=== PATIENT | female | born 1975 | race Caucasian/White ===

== ENCOUNTER → 2018-03-23 | Outpatient (CLI) | payer OTHER ==
[2018-03-23 15:39] LABS: BILIRUBIN,URINE NEGATIVE (NEG); CLARITY,URINE CLEAR; COLOR,URINE YELLOW; GLUCOSE,URINE NEGATIVE (NEG); NITRITE,URINE NEGATIVE (NEG); PH,URINE 6.5; PROTEIN,URINE NEGATIVE (NEG-TRACE)
[2018-03-23 15:47] LABS: ADD MAN DIFF? NO; BASO # 0.1 x10^3/uL (0.0-0.2); BASO % 1 % (0-3); EOS # 0.1 x10^3/uL (0.0-0.7); EOS % 1 % (0-3); HEMATOCRIT 35.4 % (36.0-47.0); LYMPH % 33 % (24-48); MEAN CORPUSCULAR HEMOGLOBIN 28 pg (25-35); MEAN CORPUSCULAR HGB CONC 34 g/dL (31-37); MEAN CORPUSCULAR VOLUME 82 fL (79-100); MONO # 0.3 x10^3/uL (0.0-1.1); MONO % 6 % (0-9); NEUT # 3.5 x10^3uL (1.8-7.7); NEUT % 59 % (31-73); PLATELET COUNT 279 x10^3/uL (140-400); RED CELL DISTRIBUTION WIDTH 15.3 % (11.5-14.5)
[2018-03-23 15:52] LABS: BACTERIA,URINE FEW /HPF (0-FEW); RBC,URINE 0 /HPF (0-2); SQUAMOUS EPITHELIAL CELL,UR OCC /LPF; WBC,URINE OCC /HPF (0-4)
[2018-03-23 15:58] LABS: ALBUMIN 3.5 g/dL (3.4-5.0); ALK PHOS 98 U/L (46-116); ALT (SGPT) 18 U/L (14-59); ANION GAP 6 (6-14); AST (SGOT) 14 U/L (15-37); BLOOD UREA NITROGEN 9 mg/dL (7-20); BUN/CREATININE RATIO 13 (6-20); CALCIUM 8.5 mg/dL (8.5-10.1); CARBON DIOXIDE 31 mmol/L (21-32); CHLORIDE 104 mmol/L (98-107); CREATININE 0.7 mg/dL (0.6-1.0); GFR 91.8; GLUCOSE 87 mg/dL (70-99); POTASSIUM 3.9 mmol/L (3.5-5.1); SODIUM 141 mmol/L (136-145); TOTAL BILIRUBIN 0.4 mg/dL (0.2-1.0)
== END | disposition home or self-care (01) ==
LOC: SURGPAT 14:52
DX: Z01.818 Encounter for other preprocedural examination (principal); G47.33 Obstructive sleep apnea (adult) (pediatric); N92.0 Excessive and frequent menstruation with regular cycle
CPT/HCPCS: 36415; 71046; 80053; 81001; 85025; 93005

== ENCOUNTER 2018-04-02 06:10 | Observation (INO) | payer OTHER ==
[~2018-04-02 06:10] MED LIST: ESTROGENS, CONJ VAGINAL CREAM 30GM TUBE.; METHYLENE BLUE 1% 10 ML VIAL.
[2018-04-02] MEDS: IV RINGERS,LACTATED 1000ML 1,000 ML IV (06:44)
[2018-04-02] MEDS ORDERED: MORPHINE SULFATE 4 MG/ML DISP.SYRIN. IV ×2 (07:00→09:30)
[2018-04-02] MEDS ORDERED: ONDANSETRON PF 4 MG/2 ML VIAL. IV ×2 (07:00→09:30)
[2018-04-02] MEDS ORDERED: HYDROmorphone 2 MG/ML VIAL IV (07:00)
[2018-04-02] MEDS ORDERED: fentaNYL PF VIAL 100 MCG/2 ML VIAL IV (07:00)
[2018-04-02] MEDS ORDERED: LIDOCAINE 1% PF 2 ML VIAL. ID (07:00)
[2018-04-02 07:03] LABS: NEG OBC UR NEG; POS OBC UR POS; U PREG PATIENT NEGATIVE (NEG)
[2018-04-02] MEDS ORDERED: DEXAMETHASONE SOD PHOS 20 MG/5 ML VIAL. (07:07)
[2018-04-02] MEDS ORDERED: KETOROLAC 30 MG/ML INJ FOR OR. INJ (07:07)
[2018-04-02] MEDS ORDERED: PROPOFOL 20 ML IV (07:07)
[2018-04-02] MEDS ORDERED: ONDANSETRON PF 4 MG/2 ML VIAL. (07:07)
[2018-04-02] MEDS ORDERED: MIDAZOLAM HCL/PF 2 MG/2 ML VIAL. (07:07)
[2018-04-02] MEDS ORDERED: LIDOCAINE 2% PF Vial for OR 5 ML VIAL. (07:07)
[2018-04-02] MEDS ORDERED: fentaNYL PF VIAL 100 MCG/2 ML VIAL ×2 (07:07→08:17)
[2018-04-02] MEDS ORDERED: ROCURONIUM 50 MG/5 ML VIAL. (07:07)
[2018-04-02] MEDS ORDERED: SUCCINYLCHOLINE 200 MG/10 ML VIAL. (07:07)
[2018-04-02] MEDS ORDERED: FAMOTIDINE 20 MG/2 ML VIAL (07:07)
[2018-04-02] MEDS ORDERED: PHENYLEPHRINE in 0.9% NACL PF 1 MG/10 ML SYRINGE. IV (07:51)
[2018-04-02] MEDS: BUPIVACAINE-EPI 0.25%-1:200000 50 ML VIAL. (08:00)
[2018-04-02] MEDS ORDERED: NEOSTIGMINE METHYLSULFATE 5 MG/5 ML SYRINGE. (09:01)
[2018-04-02] MEDS ORDERED: GLYCOPYRROLATE 1 MG/5 ML VIAL. (09:01)
[2018-04-02] MEDS ORDERED: DESFLURANE > 120 MINUTES IH (09:25)
[2018-04-02] MEDS ORDERED: LACTULOSE 20 GM/30 ML SOLUTION. PO (09:30)
[2018-04-02] MEDS ORDERED: MAGNESIUM HYDROXIDE 2,400 MG/30 ML ORAL.SUSP. PO (09:30)
[2018-04-02] MEDS ORDERED: NALOXONE 0.4 MG/ML VIAL. IV (09:30)
[2018-04-02] MEDS ORDERED: HYDROcodone/APAP 5/325MG 1 TAB TABLET PO (09:30)
[2018-04-02] MEDS ORDERED: CALCIUM CARBONATE 500 MG TAB.CHEW PO (09:30)
[2018-04-02] MEDS ORDERED: SIMETHICONE 80 MG TAB.CHEW PO (09:30)
[2018-04-02] MEDS ORDERED: MAG HYDROX/ALUMINUM HYD/SIMETH 30 ML ORAL.SUSP PO (09:30)
[2018-04-02] MEDS ORDERED: 0.9 % SODIUM CHLORIDE 10 ML DISP.SYRIN. IV (09:30)
[2018-04-02] MEDS ORDERED: diphenhydrAMINE HCL 25 MG CAPSULE PO (09:30)
[2018-04-02] MEDS ORDERED: ZOLPIDEM 5 MG TABLET. PO (09:30)
[2018-04-02] MEDS ORDERED: diphenhydrAMINE 50 MG/ML VIAL IV (09:30)
[2018-04-02] MEDS ORDERED: ceFAZolin 2GM PREMIX 2 GM/50 ML BAG IV (10:00)
[2018-04-02] MEDS: fentaNYL PF VIAL 100 MCG/2 ML VIAL IV ×2 (10:23→10:49)
[2018-04-02] MEDS: PROCHLORPERAZINE 10 MG/2 ML VIAL. IV (10:23)
[2018-04-02] MEDS: KETOROLAC 30 MG/ML INJ. IV (12:30)
[2018-04-02] MEDS: oxyCODONE/APAP 5/325 1 TAB TABLET PO (20:09)
[2018-04-03 04:39] LABS: HEMATOCRIT 33.7 % (36.0-47.0)
[2018-04-03] MEDS: oxyCODONE/APAP 5/325 1 TAB TABLET PO (05:19)
[2018-04-03 05:51] LABS: ANION GAP 7 (6-14); BLOOD UREA NITROGEN 7 mg/dL (7-20); CALCIUM 8.9 mg/dL (8.5-10.1); CARBON DIOXIDE 28 mmol/L (21-32); CHLORIDE 105 mmol/L (98-107); CREATININE 0.6 mg/dL (0.6-1.0); GFR 109.6; GLUCOSE 101 mg/dL (70-99); POTASSIUM 4.6 mmol/L (3.5-5.1); SODIUM 140 mmol/L (136-145)
== END 2018-04-03 09:45 | disposition home or self-care (01) ==
LOC: SURG 06:10 → 3 NORTH 09:15
DX: D26.9 Other benign neoplasm of uterus, unspecified (principal); N80.0 Endometriosis of uterus; N83.8 Other noninflammatory disorders of ovary, fallopian tube and broad ligament; K66.0 Peritoneal adhesions (postprocedural) (postinfection); N85.4 Malposition of uterus; N92.0 Excessive and frequent menstruation with regular cycle; N72 Inflammatory disease of cervix uteri
CPT/HCPCS: 36415; 80048; 81025; 85014; 86850; 86900; 86901; 88307; A7015; G0378; G0379; J0330; J0690; J0780; J1100; J1885; J2250; J2370; J2405; J2704; J2710; J3010; J3490; J7030; J7120; Q9968; S0028